=== PATIENT | female | born 1980 | race Caucasian/White ===

== ENCOUNTER 2020-03-04 00:50 | Emergency (ER) | payer SELFPAY ==
[2020-03-04] MEDS ORDERED: Sodium Chloride 0.9% 10 ML Syringe FLUSH PRN (00:52)
[2020-03-04] MEDS ORDERED: Ondansetron 4 MG/2 ML SDV IVPUSH ONE (00:52)
[2020-03-04] MEDS ORDERED: Sodium Chloride 0.9% 2.5 ML Syringe FLUSH PRN (00:52)
[2020-03-04] MEDS ORDERED: Sodium Chloride 0.9% 1,000 ML IV ONE ×3 (00:52→03:17)
[2020-03-04] MEDS ORDERED: Diphtheria,Pertussis(Acell),Tetanus Vaccine 0.5 ML Syringe IM ONE (01:14)
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
[2020-03-04] MEDS ORDERED: Glucagon,Human Recombinant 1 MG Vial IM PRN (01:32)
[2020-03-04] MEDS ORDERED: 50% Dextrose in Water 50 ML Syringe IV PRN (01:32)
[2020-03-04] MEDS ORDERED: Insulin Regular, Human 100 Units/ML 10 ML Vial IVPUSH ONE (01:32)
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
[2020-03-04 01:38] LABS: BLOOD UREA NITROGEN,BUN 18 mg/dL (7.0-18.0); CARBON DIOXIDE,CO2 21.3 mmol/L (21.0-32.0); LIPASE 107 U/L (73-393)
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
[2020-03-04 01:43] LABS: GLUCOSE RANDOM 688 mg/dL (74-106)
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
[2020-03-04 01:56] LABS: CHLORIDE,CL 97 mmol/L (98-107); POTASSIUM,K 4.4 mmol/L (3.5-5.1); SODIUM,NA 133 mmol/L (136-145)
[2020-03-04] MEDS ORDERED: fentaNYL 50 MCG/ML SDV IVPUSH ONE (02:06)
[2020-03-04] MEDS ORDERED: Diphtheria,Pertussis(Acell),Tetanus Vaccine 0.5 ML Syringe ONE (02:10)
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
[2020-03-04] MEDS ORDERED: Iopamidol 755 MG/ML 500 ML Multipack Bottle IVPUSH STA (02:48)
== END 2020-03-04 03:54 ==
LOC: MW.ED 00:50
DX: S06.0X9A Concussion with loss of consciousness of unspecified duration, initial encounter (principal); S12.9XXA Fracture of neck, unspecified, initial encounter; S02.11 Fracture of occiput; S01.81XA Laceration without foreign body of other part of head, initial encounter; E10.65 Type 1 diabetes mellitus with hyperglycemia; F10.129 Alcohol abuse with intoxication, unspecified; Y90.8 Blood alcohol level of 240 mg/100 ml or more; Z23 Encounter for immunization; V89.2XXA Person injured in unspecified motor-vehicle accident, traffic, initial encounter
CPT/HCPCS: 36415; 51702; 70450; 71260; 72125; 73600; 73630; 74177; 80053; 80179; 80305; 81003; 81025; 82962; 83690; 84484; 85025; 85610; 85730; 87635; 93005; 96374; 96375; 99285; G0390; J2405; J3010; J7030; Q9967; 72128-26; 72131-26; 99291; J1815-GY; U0002

== ENCOUNTER 2020-05-07 20:07 | Emergency (ER) | payer SELFPAY ==
[2020-05-07] MEDS ORDERED: HYDROmorphone 1 MG/ML Syringe IVPUSH ONE (20:36)
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
[2020-05-07] MEDS ORDERED: Sodium Chloride 0.9% 1,000 ML IV SCH (21:00)
== END 2020-05-07 21:15 ==
LOC: MW.ED 20:07
DX: M53.2X2 Spinal instabilities, cervical region (principal); E10.9 Type 1 diabetes mellitus without complications; Z87.891 Personal history of nicotine dependence; Z98.890 Other specified postprocedural states
CPT/HCPCS: 82962; 96374; 99285; J1170; J7030

== ENCOUNTER 2021-04-13 05:47 | Emergency (ER) | payer MEDICAID ==
[2021-04-13] MEDS ORDERED: Ondansetron 4 MG/2 ML SDV IVPUSH ONE (06:38)
[2021-04-13] MEDS ORDERED: Sodium Chloride 0.9% 10 ML Syringe FLUSH PRN (06:38)
[2021-04-13] MEDS ORDERED: Morphine 4 MG/ML VIAL IVPUSH ONE (06:38)
[2021-04-13] MEDS ORDERED: Sodium Chloride 0.9% 2.5 ML Syringe FLUSH PRN (06:38)
[2021-04-13 06:59] LABS: BLOOD UREA NITROGEN,BUN 13 mg/dL (7.0-18.0); CARBON DIOXIDE,CO2 26.8 mmol/L (21.0-32.0); CHLORIDE,CL 97 mmol/L (98-107); GLUCOSE RANDOM 297 mg/dL (74-106); POTASSIUM,K 3.7 mmol/L (3.5-5.1); SODIUM,NA 136 mmol/L (136-145)
[2021-04-13] MEDS ORDERED: Sodium Chloride 0.9% 1,000 ML IV ONE ×3 (08:01→10:26)
[2021-04-13] MEDS ORDERED: Iopamidol 755 MG/ML 500 ML Multipack Bottle IVPUSH STA (08:48)
[2021-04-13] MEDS ORDERED: HYDROmorphone 1 MG/ML Syringe IVPUSH ONE (08:54)
[2021-04-13] MEDS ORDERED: Piperacillin/Tazobactam 3.375 GM in Sodium Chloride 0.9% 50 ML IV ONE (10:23)
== END 2021-04-13 10:48 | disposition left against medical advice (07) ==
LOC: MW.ED 05:47
DX: J85.1 Abscess of lung with pneumonia (principal); E10.10 Type 1 diabetes mellitus with ketoacidosis without coma
CPT/HCPCS: 36415; 71275; 71275-26; 80053; 82009; 82803; 82947; 83605; 84484; 84703; 85025; 87040; 93005; 96374; 96375; 99284-25; J1170; J2270; J2405; J7030; Q9967

== ENCOUNTER 2021-04-13 13:25 | Emergency (ER) | payer MEDICAID ==
[2021-04-13] MEDS ORDERED: Piperacillin/Tazobactam 3.375 GM in Sodium Chloride 0.9% 50 ML IV ONE (13:33)
[2021-04-13] MEDS ORDERED: HYDROmorphone 1 MG/ML Syringe IVPUSH ONE (13:48)
[2021-04-13] MEDS ORDERED: VANCOmycin 1.5 GM/300 ML 1.5 GM in Premix Bag 1 BAG IV ONE (14:00)
[2021-04-13] MEDS ORDERED: Ondansetron 4 MG/2 ML SDV IVPUSH ONE (14:38)
== END 2021-04-13 15:18 ==
LOC: MW.ED 13:25
DX: J85.1 Abscess of lung with pneumonia (principal); E10.9 Type 1 diabetes mellitus without complications
CPT/HCPCS: 96365; 96375; 99284; J1170; J2405; J3370

== ENCOUNTER 2021-05-08 10:41 | Emergency (ER) | payer MEDICAID ==
[2021-05-08] MEDS ORDERED: Ondansetron 4 MG/2 ML SDV IVPUSH ONE (11:57)
[2021-05-08] MEDS ORDERED: Morphine 4 MG/ML VIAL IVPUSH ONE ×2 (11:57→13:45)
[2021-05-08 12:30] LABS: BLOOD UREA NITROGEN,BUN 16 mg/dL (7.0-18.0); CARBON DIOXIDE,CO2 24.9 mmol/L (21.0-32.0); CHLORIDE,CL 100 mmol/L (98-107); GLUCOSE RANDOM 282 mg/dL (74-106); LIPASE 107 U/L (73-393); POTASSIUM,K 4.4 mmol/L (3.5-5.1); SODIUM,NA 134 mmol/L (136-145)
[2021-05-08] MEDS ORDERED: Iopamidol 755 MG/ML 500 ML Multipack Bottle IVPUSH STA (13:12)
== END 2021-05-08 15:31 | disposition home or self-care (01) ==
LOC: MW.ED 10:41
DX: J18.9 Pneumonia, unspecified organism (principal); E10.9 Type 1 diabetes mellitus without complications
CPT/HCPCS: 36415; 71275; 80053; 83690; 84484; 84703; 85025; 96374; 96375; 96376; 99284; J2270; J2405; Q9967

== ENCOUNTER 2021-06-23 11:15 | Emergency (ER) | payer MEDICAID ==
[2021-06-23] MEDS ORDERED: Sodium Chloride 0.9% 10 ML Syringe FLUSH PRN (11:39)
[2021-06-23] MEDS ORDERED: Sodium Chloride 0.9% 1,000 ML IV ONE (11:39)
[2021-06-23] MEDS ORDERED: Sodium Chloride 0.9% 2.5 ML Syringe FLUSH PRN (11:39)
[2021-06-23] MEDS ORDERED: Morphine 4 MG/ML VIAL IVPUSH ONE (11:46)
[2021-06-23] MEDS ORDERED: Ondansetron 4 MG/2 ML SDV IVPUSH ONE (11:46)
[2021-06-23 12:11] LABS: BLOOD UREA NITROGEN,BUN 16 mg/dL (7.0-18.0); CARBON DIOXIDE,CO2 22.6 mmol/L (21.0-32.0); CHLORIDE,CL 100 mmol/L (98-107); GLUCOSE RANDOM 337 mg/dL (74-106); LIPASE 46 U/L (73-393); POTASSIUM,K 4.3 mmol/L (3.5-5.1); SODIUM,NA 135 mmol/L (136-145)
[2021-06-23] MEDS ORDERED: diphenhydrAMINE 50 MG/ML SDV IVPUSH ONE (12:39)
[2021-06-23] MEDS ORDERED: HYDROmorphone 2 MG/ML Syringe IVPUSH ONE (13:47)
[2021-06-23] MEDS ORDERED: Insulin Regular, Human 100 Units/ML 10 ML Vial SUBCUT SCH (14:00)
[2021-06-23] MEDS ORDERED: Iopamidol 755 MG/ML 500 ML Multipack Bottle IVPUSH ONE (14:50)
== END 2021-06-23 14:34 | disposition home or self-care (01) ==
LOC: MW.ED 11:15
DX: R10.9 Unspecified abdominal pain (principal); E10.65 Type 1 diabetes mellitus with hyperglycemia
CPT/HCPCS: 36415; 74177; 80053; 81003; 83690; 84703; 85025; 96374; 96375; 99284; J1170; J1200; J2270; J2405; J3490; J7030; Q9967; J1815-GY

== ENCOUNTER 2021-06-24 14:34 | Emergency (ER) | payer MEDICAID ==
[2021-06-24] MEDS ORDERED: Sodium Chloride 0.9% 1,000 ML IV ONE ×2 (15:33→16:10)
[2021-06-24 15:56] LABS: BLOOD UREA NITROGEN,BUN 14 mg/dL (7.0-18.0); CARBON DIOXIDE,CO2 26.4 mmol/L (21.0-32.0); CHLORIDE,CL 96 mmol/L (98-107); GLUCOSE RANDOM 479 mg/dL (74-106); POTASSIUM,K 4.4 mmol/L (3.5-5.1); SODIUM,NA 132 mmol/L (136-145)
[2021-06-24] MEDS ORDERED: Amoxicillin/Clavulanate K 875-125 MG Tab PO ONE (16:30)
[2021-06-24] MEDS ORDERED: Acetaminophen 500 MG Tab PO ONE (16:31)
[2021-06-24] MEDS ORDERED: Insulin Regular, Human 100 Units/ML 10 ML Vial SUBCUT SCH (17:30)
[2021-06-24] MEDS ORDERED: Ibuprofen 800 MG Tab PO ONE (19:20)
== END 2021-06-24 20:10 ==
LOC: MW.ED 14:34
DX: E10.65 Type 1 diabetes mellitus with hyperglycemia (principal); K04.7 Periapical abscess without sinus; Z79.899 Other long term (current) drug therapy; Z79.4 Long term (current) use of insulin
CPT/HCPCS: 36415; 80053; 82009; 82803; 82947; 85025; 99285; A9270; J7030; 99284; J1815-GY

== ENCOUNTER 2022-09-14 14:42 | Emergency (ER) | payer MEDICAID ==
[2022-09-14] MEDS ORDERED: Sodium Chloride 0.9% 2.5 ML Syringe FLUSH PRN (15:11)
[2022-09-14] MEDS ORDERED: Sodium Chloride 0.9% 10 ML Syringe FLUSH PRN (15:11)
[2022-09-14] MEDS ORDERED: Sodium Chloride 0.9% 2,000 ML IV STA (15:13)
[2022-09-14] MEDS ORDERED: Prochlorperazine 10 MG/2 ML SDV IVPUSH STA (15:14)
[2022-09-14] MEDS ORDERED: Acetaminophen 500 MG Tab PO STA (15:14)
[2022-09-14] MEDS ORDERED: Ketorolac 30 MG/ML SDV IVPUSH STA (15:14)
[2022-09-14 15:18] LABS: BASOPHILS PERCENT AUTO 0.6 % (0.0-1.5); EOSINOPHILS ABSOLUTE AUTO 0.2 K/uL (0.0-0.7); EOSINOPHILS PERCENT AUTO 2.4 % (0.0-7.0); LYMPHOCYTES PERCENT AUTO 33.1 % (16.0-40.0); MEAN CORPUSCULAR HEMOGLOBIN 33.2 pg (27.0-32.0); MEAN CORPUSCULAR HGB CONC 36.6 g/dL (31.0-37.0); MEAN CORPUSCULAR VOLUME 90.7 fL (80.0-98.0); MONOCYTES ABSOLUTE AUTO 0.4 K/uL (0.0-0.8); NEUTROPHILS ABSOLUTE AUTO 3.5 K/uL (1.4-5.7); NEUTROPHILS PERCENT AUTO 56.9 % (48.0-80.0); NRBC ABSOLUTE 0 K/uL; PLATELET COUNT,PLT 270 K/uL (150-400); RED BLOOD CELL COUNT 4.52 M/uL (4.30-5.90); WHITE BLOOD CELL COUNT,WBC 6.16 K/uL (4.0-11.0)
[2022-09-14 15:29] LABS: A/G RATIO 0.9 (0.9-1.6); ALBUMIN 3.2 g/dL (3.4-5.0); BILIRUBIN TOTAL 0.5 mg/dL (0.2-1.0); CALCIUM 8.7 mg/dL (8.5-10.1); CARBON DIOXIDE,CO2 30.1 mmol/L (21.0-32.0); CREATININE 0.9 mg/dL (0.6-1.0); EST CRCL DRUG DOSING (CG) 78.38 mL/min; MAGNESIUM 1.4 mg/dL (1.8-2.4); PHOSPHORUS 3.6 mg/dL (2.6-4.7); POTASSIUM,K 4.2 mmol/L (3.5-5.1); PROTEIN TOTAL,TP 6.6 g/dL (6.4-8.2)
[2022-09-14] MEDS ORDERED: Magnesium Sulfate/Water 4 GM in Premix Bag 1 BAG IV STA (15:32)
[2022-09-14 15:46] LABS: APPEARANCE,URINE SLT CLOUDY; BILIRUBIN,URINE NEGATIVE (NEGATIVE); COLOR,URINE YELLOW; GLUCOSE,URINE >=1000 mg/dL (NEGATIVE); KETONES,URINE NEGATIVE (NEGATIVE); LEUKOCYTE ESTERASE,URINE NEGATIVE (NEGATIVE); NITRITE,URINE NEGATIVE (NEGATIVE); OCCULT BLOOD,URINE NEGATIVE (NEGATIVE); PH,URINE 7.5 (5.0-8.0); PROTEIN,URINE NEGATIVE (NEGATIVE)
[2022-09-14] MEDS ORDERED: Glucagon,Human Recombinant 1 MG Vial IM PRN (15:52)
[2022-09-14] MEDS ORDERED: 50% Dextrose in Water 50 ML Syringe IVPUSH PRN (15:52)
[2022-09-14] MEDS ORDERED: Insulin Regular, Human 100 Units/ML 10 ML Vial IVPUSH STA (15:52)
[2022-09-14 18:14] LABS: CARBON DIOXIDE,CO2 27.7 mmol/L (21.0-32.0); CREATININE 0.9 mg/dL (0.6-1.0); EST CRCL DRUG DOSING (CG) 78.38 mL/min; POTASSIUM,K 4.5 mmol/L (3.5-5.1)
== END 2022-09-14 18:55 | disposition home or self-care (01) ==
LOC: MW.ED 14:42
DX: E10.65 Type 1 diabetes mellitus with hyperglycemia (principal); F17.210 Nicotine dependence, cigarettes, uncomplicated
CPT/HCPCS: 36415; 80048; 80053; 81003; 82009; 82947; 83690; 83735; 84100; 85025; 86308; 96365; 96366; 96375; 99284; A9270; J0780; J1885; J3475; J3490; J7030; J1815-GY

== ENCOUNTER 2022-12-03 23:14 | Inpatient (IN) | payer MEDICAID ==
[2022-12-03] MEDS ORDERED: LORazepam 2 MG/ML SDV IVPUSH ONE (23:25)
[2022-12-03] MEDS ORDERED: Lactated Ringers 1,000 ML IV SCH ×2 (23:30)
[2022-12-03 23:32] LABS: BASE EXCESS VENOUS -14.4 (-2.0-3.0); BASOPHILS PERCENT AUTO 0.5 % (0.0-1.5); EOSINOPHILS ABSOLUTE AUTO 0.1 K/uL (0.0-0.7); LYMPHOCYTES ABSOLUTE AUTO 1.7 K/uL (0.6-2.4); LYMPHOCYTES PERCENT AUTO 23.1 % (16.0-40.0); MEAN CORPUSCULAR HEMOGLOBIN 32.1 pg (27.0-32.0); MEAN CORPUSCULAR HGB CONC 34.1 g/dL (31.0-37.0); MEAN CORPUSCULAR VOLUME 94.2 fL (80.0-98.0); MONOCYTES ABSOLUTE AUTO 0.6 K/uL (0.0-0.8); MONOCYTES PERCENT AUTO 7.6 % (0.0-15.0); NEUTROPHILS PERCENT AUTO 67.8 % (48.0-80.0); NRBC ABSOLUTE 0 K/uL; PH,VENOUS 7.22 (7.31-7.41); PLATELET COUNT,PLT 311 K/uL (150-400); RED BLOOD CELL COUNT 4.67 M/uL (4.30-5.90); WHITE BLOOD CELL COUNT,WBC 7.33 K/uL (4.0-11.0)
[2022-12-03 23:39] LABS: APPEARANCE,URINE CLEAR; BILIRUBIN,URINE NEGATIVE (NEGATIVE); COLOR,URINE YELLOW; GLUCOSE,URINE >=1000 mg/dL (NEGATIVE); KETONES,URINE >=80 mg/dL (NEGATIVE); LEUKOCYTE ESTERASE,URINE NEGATIVE (NEGATIVE); NITRITE,URINE NEGATIVE (NEGATIVE); OCCULT BLOOD,URINE NEGATIVE (NEGATIVE); PH,URINE 5.5 (5.0-8.0); PROTEIN,URINE NEGATIVE (NEGATIVE); UROBILINOGEN,URINE 0.2 EU/dL (<2.0)
[2022-12-03] MEDS ORDERED: Ondansetron 4 MG/2 ML SDV IVPUSH ONE (23:56)
[2022-12-04 00:04] LABS: A/G RATIO 1.1 (0.9-1.6); ALBUMIN 4.1 g/dL (3.4-5.0); BILIRUBIN TOTAL 1.2 mg/dL (0.2-1.0); CALCIUM 9.1 mg/dL (8.5-10.1); CARBON DIOXIDE,CO2 11.9 mmol/L (21.0-32.0); CREATININE 1.4 mg/dL (0.6-1.0); EST CRCL DRUG DOSING (CG) 50.39 mL/min; MAGNESIUM 2.5 mg/dL (1.8-2.4); POTASSIUM,K 5.5 mmol/L (3.5-5.1); PROTEIN TOTAL,TP 7.8 g/dL (6.4-8.2); TSH ULTRASENSITIVE 0.86 uIU/mL (0.36-3.74)
[2022-12-04] MEDS ORDERED: Insulin Regular in 0.9 % NACL 100 ML IV SCH (00:15)
[2022-12-04] MEDS: Lidocaine 4% 1 each Patch TOP SCH ×2 (00:23→08:47)
[2022-12-04 01:48] LABS: BASE EXCESS VENOUS -13.4 (-2.0-3.0); PH,VENOUS 7.22 (7.31-7.41)
[2022-12-04] MEDS ORDERED: Ibuprofen 400 MG Tab PO ONE (01:48)
[2022-12-04] MEDS ORDERED: Acetaminophen 325 MG Tab PO ONE (01:48)
[2022-12-04 02:08] LABS: CALCIUM 8.4 mg/dL (8.5-10.1); CREATININE 1.3 mg/dL (0.6-1.0); EST CRCL DRUG DOSING (CG) 54.26 mL/min; POTASSIUM,K 4.4 mmol/L (3.5-5.1)
[2022-12-04] MEDS ORDERED: Polyethylene Glycol 3350 Powder 17 GM Packet PO PRN (02:58)
[2022-12-04] MEDS ORDERED: Ibuprofen 400 MG Tab PO PRN (02:58)
[2022-12-04] MEDS ORDERED: Albuterol/Ipratropium 3.0-0.5 MG/3 ML Neb Soln NEB PRN (02:58)
[2022-12-04] MEDS ORDERED: Ondansetron 4 MG/2 ML SDV IVPUSH PRN (02:58)
[2022-12-04] MEDS ORDERED: Acetaminophen 325 MG Tab PO PRN (02:58)
[2022-12-04] MEDS ORDERED: Lactated Ringers 1,000 ML IV SCH (03:00)
[2022-12-04] MEDS ORDERED: Enoxaparin 40 MG/0.4 ML Syringe SUBCUT SCH (03:00)
[2022-12-04] MEDS ORDERED: Pantoprazole 40 MG in Sodium Chloride 0.9% 10 ML IVPUSH SCH (03:00)
[2022-12-04] MEDS ORDERED: Lactated Ringers 1,000 ML IV ONE (03:05)
[2022-12-04] MEDS: Potassium Chloride 100 ML IV SCH ×2 (03:26→05:49)
[2022-12-04] MEDS ORDERED: Dextrose 5%-0.9% NaCl 1,000 ML IV SCH ×2 (03:30→07:44)
[2022-12-04 04:33] LABS: BASOPHILS PERCENT AUTO 0.4 % (0.0-1.5); EOSINOPHILS PERCENT AUTO 0.3 % (0.0-7.0); HEMATOCRIT 32.9 % (36.0-46.0); HEMOGLOBIN 11.4 g/dL (12.0-16.0); LYMPHOCYTES ABSOLUTE AUTO 1.9 K/uL (0.6-2.4); LYMPHOCYTES PERCENT AUTO 26.7 % (16.0-40.0); MEAN CORPUSCULAR HEMOGLOBIN 31.3 pg (27.0-32.0); MEAN CORPUSCULAR HGB CONC 34.7 g/dL (31.0-37.0); MEAN CORPUSCULAR VOLUME 90.4 fL (80.0-98.0); MONOCYTES ABSOLUTE AUTO 0.4 K/uL (0.0-0.8); MONOCYTES PERCENT AUTO 5.4 % (0.0-15.0); NEUTROPHILS ABSOLUTE AUTO 4.8 K/uL (1.4-5.7); NEUTROPHILS PERCENT AUTO 67.2 % (48.0-80.0); NRBC ABSOLUTE 0 K/uL; PLATELET COUNT,PLT 226 K/uL (150-400); RED BLOOD CELL COUNT 3.64 M/uL (4.30-5.90); WHITE BLOOD CELL COUNT,WBC 7.19 K/uL (4.0-11.0)
[2022-12-04 04:44] LABS: CALCIUM 8.3 mg/dL (8.5-10.1); CARBON DIOXIDE,CO2 20.5 mmol/L (21.0-32.0); EST CRCL DRUG DOSING (CG) 70.54 mL/min; POTASSIUM,K 4.2 mmol/L (3.5-5.1)
[2022-12-04 04:48] LABS: MAGNESIUM 2.2 mg/dL (1.8-2.4); PHOSPHORUS 3.3 mg/dL (2.6-4.7)
[2022-12-04 08:19] LABS: CALCIUM 7.6 mg/dL (8.5-10.1); CARBON DIOXIDE,CO2 23.6 mmol/L (21.0-32.0); CREATININE 0.9 mg/dL (0.6-1.0); EST CRCL DRUG DOSING (CG) 78.38 mL/min; POTASSIUM,K 4.6 mmol/L (3.5-5.1)
[2022-12-04] MEDS ORDERED: Insulin Glargine,Hum.Rec.Anlog 100 UNIT/ML 3 ML Pen SUBCUT ONE (09:02)
[2022-12-04] MEDS ORDERED: Glucagon,Human Recombinant 1 MG Vial IM PRN (10:26)
[2022-12-04] MEDS ORDERED: 50% Dextrose in Water 50 ML Syringe IVPUSH PRN (10:26)
[2022-12-04] MEDS: Insulin Aspart 100 Units/ML 3 ML Pen SUBCUT SCH ×2 (11:35→11:51)
[2022-12-04 13:23] LABS: CALCIUM 7.6 mg/dL (8.5-10.1); CARBON DIOXIDE,CO2 24.8 mmol/L (21.0-32.0); CREATININE 1.2 mg/dL (0.6-1.0); EST CRCL DRUG DOSING (CG) 58.78 mL/min; POTASSIUM,K 4.1 mmol/L (3.5-5.1)
== END 2022-12-04 15:15 | disposition home or self-care (01) | DRG 639 ==
LOC: MW.ED 23:14 → MW.ICU 12-04 02:30
PROVIDERS: ADMIT Family Medicine; ATTEND Family Medicine
PROC: 3E033VG Introduction of Insulin into Peripheral Vein, Percutaneous Approach (ICD-10-PCS; principal; 2022-12-04)
DX: E10.10 Type 1 diabetes mellitus with ketoacidosis without coma (principal); F41.9 Anxiety disorder, unspecified; Z20.822 Contact with and (suspected) exposure to COVID-19; Z87.01 Personal history of pneumonia (recurrent); Z79.4 Long term (current) use of insulin
CPT/HCPCS: 36415; 71045; 71045-26; 80048; 80053; 81003; 82009; 82803; 82947; 83690; 83735; 84100; 84443; 84484; 85025; 93005; 93010; 96361; 96374; 96375; 99235; 99291; A9270-GY; C9113; J1650; J1815; J1815-GY; J2060; J2405; J3480; J3490; J7042; J7120; U0002

== ENCOUNTER 2023-07-19 01:22 | Inpatient (IN) | payer MEDICAID ==
[2023-07-19] MEDS: Sodium Chloride 0.9% 10 ML Syringe FLUSH PRN (02:03)
[2023-07-19] MEDS: Lactated Ringers 1,000 ML IV STA (02:03)
[2023-07-19] MEDS: Sodium Chloride 0.9% 2.5 ML Syringe FLUSH PRN (02:04)
[2023-07-19 02:08] LABS: BASE EXCESS VENOUS -8.6 (-2.0-3.0); BASOPHILS ABSOLUTE AUTO 0.07 K/uL (0.00-0.20); BASOPHILS PERCENT AUTO 0.7 % (0.0-1.0); BICARBONATE,VENOUS 19 mEQ/mL (22-28); EOSINOPHILS ABSOLUTE AUTO 0.17 K/uL (0.00-0.45); EOSINOPHILS PERCENT AUTO 1.7 % (0.0-6.0); HEMATOCRIT 42.9 % (37.0-47.0); HEMOGLOBIN 14.9 g/dL (12.0-16.0); IMMATURE GRAN ABSOLUTE AUTO 0.05 K/uL (0.00-0.05); IMMATURE GRAN PERCENT AUTO 0.5 % (0.0-0.4); LYMPHOCYTES ABSOLUTE AUTO 2.41 K/uL (1.00-4.80); LYMPHOCYTES PERCENT AUTO 24.5 % (24.0-44.0); MEAN CORPUSCULAR HEMOGLOBIN 32.3 pg (28.0-32.0); MEAN CORPUSCULAR HGB CONC 34.7 g/dL (32.0-36.0); MEAN CORPUSCULAR VOLUME 93.1 fL (83.0-99.0); MEAN PLATELET VOLUME 9.5 fL (9.4-12.3); MONOCYTES ABSOLUTE AUTO 0.43 K/uL (0.00-0.80); MONOCYTES PERCENT AUTO 4.4 % (0.0-8.0); NEUTROPHILS ABSOLUTE AUTO 6.72 K/uL (1.80-7.70); NEUTROPHILS PERCENT AUTO 68.2 % (41.0-71.0); PCO2 VENOUS 44 mmHG (41-51); PH,VENOUS 7.24 (7.31-7.41); PLATELET COUNT,PLT 289 K/uL (150-400); PO2 VENOUS < 30 mmHG (35-45); RED BLOOD CELL COUNT 4.61 M/uL (4.10-5.30); WHITE BLOOD CELL COUNT,WBC 9.85 K/uL (3.9-11.3)
[2023-07-19] MEDS: Ondansetron 4 MG/2 ML SDV IVPUSH ONE ×2 (02:14→03:13)
[2023-07-19 02:29] LABS: APPEARANCE,URINE CLEAR; BILIRUBIN,URINE NEGATIVE (NEGATIVE); COLOR,URINE YELLOW; GLUCOSE,URINE >=1000 mg/dL (NEGATIVE); KETONES,URINE >=80 mg/dL (NEGATIVE); LEUKOCYTE ESTERASE,URINE NEGATIVE (NEGATIVE); NITRITE,URINE NEGATIVE (NEGATIVE); OCCULT BLOOD,URINE NEGATIVE (NEGATIVE); PROTEIN,URINE NEGATIVE (NEGATIVE); UROBILINOGEN,URINE 0.2 EU/dL (<2.0)
[2023-07-19 02:46] LABS: ALANINE AMINOTRANSFERASE,ALT 25 IU/L (14-63); ALBUMIN 3.8 g/dL (3.4-5.0); ALKALINE PHOSPHATASE 150 U/L (46-116); ASPARTATE AMNIOTRANSFERASE,AST 14 IU/L (15-37); BILIRUBIN TOTAL 1.5 mg/dL (0.2-1.0); BLOOD UREA NITROGEN,BUN 23 mg/dL (7.0-18.0); CALCIUM 9.7 mg/dL (8.5-10.1); CARBON DIOXIDE,CO2 19.3 mmol/L (21.0-32.0); CHLORIDE,CL 88 mmol/L (98-107); CREATININE 1.2 mg/dL (0.6-1.0); EST CRCL DRUG DOSING (CG) 58.78 mL/min; LIPASE 17 U/L (16-77); MAGNESIUM 1.9 mg/dL (1.8-2.4); PROTEIN TOTAL,TP 7.7 g/dL (6.4-8.2); SODIUM,NA 128 mmol/L (136-145)
[2023-07-19 02:47] LABS: HEMOGLOBIN A1C 12.3 %
[2023-07-19 02:53] LABS: ESTIMATED GFR 58 mL/min (>60); GLUCOSE RANDOM 722 mg/dL (74-106)
[2023-07-19] MEDS: Insulin Regular in 0.9 % NACL 100 ML IV STA (03:05)
[2023-07-19] MEDS: Sodium Chloride 0.9% 1,000 ML IV ONE (03:21)
[2023-07-19] MEDS: Ondansetron 4 MG/2 ML SDV ONE (03:22)
[2023-07-19] MEDS: NS with KCl 40mEq 1,000 ML IV SCH (03:27)
[2023-07-19] MEDS: Insulin Regular in 0.9 % NACL 100 ML IV SCH (04:23)
[2023-07-19 07:00] LABS: CARBON DIOXIDE,CO2 22.8 mmol/L (21.0-32.0); CREATININE 0.8 mg/dL (0.6-1.0); EST CRCL DRUG DOSING (CG) 88.18 mL/min; POTASSIUM,K 4.1 mmol/L (3.5-5.1)
[2023-07-19] MEDS: Dextrose 5%-0.9% NaCl 1,000 ML IV SCH (07:24)
[2023-07-19] MEDS: Ondansetron 4 MG/2 ML SDV IVPUSH PRN (07:27)
[2023-07-19] MEDS: Enoxaparin 40 MG/0.4 ML Syringe SUBCUT SCH (07:27)
[2023-07-19 07:53] LABS: CORONAVIRUS COVID-19 NAA NEGATIVE (NEGATIVE); INFLUENZA A NAA NEGATIVE (NEGATIVE); INFLUENZA B NAA NEGATIVE (NEGATIVE); RESPIRATORY SYNCYTIAL VIR NAA NEGATIVE (NEGATIVE)
[2023-07-19] MEDS: Promethazine 25 MG/ML SDV IM PRN (09:59)
[2023-07-19 10:35] LABS: CALCIUM 7.8 mg/dL (8.5-10.1); CARBON DIOXIDE,CO2 24.3 mmol/L (21.0-32.0); CREATININE 0.7 mg/dL (0.6-1.0); EST CRCL DRUG DOSING (CG) 100.77 mL/min; POTASSIUM,K 4.1 mmol/L (3.5-5.1)
[2023-07-19 14:43] LABS: CALCIUM 7.7 mg/dL (8.5-10.1); CARBON DIOXIDE,CO2 25.8 mmol/L (21.0-32.0); CREATININE 0.7 mg/dL (0.6-1.0); EST CRCL DRUG DOSING (CG) 100.77 mL/min; POTASSIUM,K 4.2 mmol/L (3.5-5.1)
[2023-07-19] MEDS ORDERED: 50% Dextrose in Water 50 ML Syringe IVPUSH PRN ×2 (15:15→17:31)
[2023-07-19] MEDS ORDERED: Glucagon,Human Recombinant 1 MG Vial IM PRN ×3 (15:15→21:37)
[2023-07-19] MEDS: Insulin Glargine,Hum.Rec.Anlog 100 UNIT/ML 3 ML Pen SUBCUT STA (15:23)
[2023-07-19] MEDS: Insulin Aspart 100 Units/ML 3 ML Pen SUBCUT SCH (17:05)
[2023-07-19 18:42] LABS: CALCIUM 7.7 mg/dL (8.5-10.1); CARBON DIOXIDE,CO2 22.7 mmol/L (21.0-32.0); EST CRCL DRUG DOSING (CG) 70.54 mL/min; POTASSIUM,K 4.4 mmol/L (3.5-5.1)
[2023-07-19] MEDS: Acetaminophen 325 MG Tab PO PRN (20:17)
[2023-07-19] MEDS ORDERED: Insulin Glargine,Hum.Rec.Anlog 100 UNIT/ML 3 ML Pen SUBCUT SCH (21:00)
[2023-07-19] MEDS: Insulin Aspart 100 Units/ML 3 ML Pen SUBCUT ONE (21:44)
[2023-07-19] MEDS: Insulin Glargine,Hum.Rec.Anlog 100 UNIT/ML 3 ML Pen SUBCUT SCH (21:45)
[2023-07-19 22:25] LABS: CALCIUM 7.9 mg/dL (8.5-10.1); CARBON DIOXIDE,CO2 20.1 mmol/L (21.0-32.0); EST CRCL DRUG DOSING (CG) 70.54 mL/min; POTASSIUM,K 4.5 mmol/L (3.5-5.1)
[2023-07-20 06:20] LABS: BASOPHILS ABSOLUTE AUTO 0.04 K/uL (0.00-0.20); BASOPHILS PERCENT AUTO 0.7 % (0.0-1.0); EOSINOPHILS ABSOLUTE AUTO 0.31 K/uL (0.00-0.45); EOSINOPHILS PERCENT AUTO 5.4 % (0.0-6.0); HEMATOCRIT 35.4 % (37.0-47.0); HEMOGLOBIN 12.5 g/dL (12.0-16.0); IMMATURE GRAN ABSOLUTE AUTO 0.02 K/uL (0.00-0.05); IMMATURE GRAN PERCENT AUTO 0.3 % (0.0-0.4); LYMPHOCYTES ABSOLUTE AUTO 2.39 K/uL (1.00-4.80); LYMPHOCYTES PERCENT AUTO 41.7 % (24.0-44.0); MEAN CORPUSCULAR HEMOGLOBIN 32.6 pg (28.0-32.0); MEAN CORPUSCULAR HGB CONC 35.3 g/dL (32.0-36.0); MEAN CORPUSCULAR VOLUME 92.4 fL (83.0-99.0); MEAN PLATELET VOLUME 9.1 fL (9.4-12.3); MONOCYTES ABSOLUTE AUTO 0.35 K/uL (0.00-0.80); MONOCYTES PERCENT AUTO 6.1 % (0.0-8.0); NEUTROPHILS ABSOLUTE AUTO 2.62 K/uL (1.80-7.70); NEUTROPHILS PERCENT AUTO 45.8 % (41.0-71.0); PLATELET COUNT,PLT 200 K/uL (150-400); RED BLOOD CELL COUNT 3.83 M/uL (4.10-5.30); WHITE BLOOD CELL COUNT,WBC 5.73 K/uL (3.9-11.3)
[2023-07-20 06:35] LABS: CALCIUM 8.2 mg/dL (8.5-10.1); CARBON DIOXIDE,CO2 24.9 mmol/L (21.0-32.0); CREATININE 0.6 mg/dL (0.6-1.0); EST CRCL DRUG DOSING (CG) 117.57 mL/min; POTASSIUM,K 3.8 mmol/L (3.5-5.1)
[2023-07-20 08:03] LABS: BORDETELLA PARAPERT IS1001 Not Detected (Not Detected)
[2023-07-20] MEDS: Insulin Aspart 100 Units/ML 3 ML Pen SUBCUT SCH (08:45)
== END 2023-07-20 09:15 | disposition left against medical advice (07) | DRG 639 ==
LOC: MW.ED 01:22 → MW.ICU 03:10 → MW.MS 19:49
PROVIDERS: ADMIT Internal Medicine; ATTEND Internal Medicine
DX: E10.10 Type 1 diabetes mellitus with ketoacidosis without coma (principal); F41.9 Anxiety disorder, unspecified; H53.8 Other visual disturbances; Z79.4 Long term (current) use of insulin; Z90.89 Acquired absence of other organs; Z87.01 Personal history of pneumonia (recurrent)
CPT/HCPCS: 0241U; 36415; 71045; 71045-26; 80048; 80053; 81003; 82009; 82803; 82947; 83036; 83690; 83735; 84484; 84703; 85025; 87486; 87581; 87633; 93005; 93010; 96361; 96374; 99285-25; 99291; A9270-GY; J1650; J1815; J1815-GY; J2405; J2550; J3480; J3490; J7030; J7042; J7120

== ENCOUNTER 2024-08-17 09:38 | Emergency (ER) | payer MEDICAID ==
[2024-08-17] MEDS: Ketorolac 30 MG/ML SDV IVPUSH ONE (10:04)
[2024-08-17] MEDS: LORazepam 2 MG/ML SDV IVPUSH ONE (10:06)
[2024-08-17] MEDS: Sodium Chloride 0.9% 1,000 ML IV ONE (10:06)
[2024-08-17 10:10] LABS: BASOPHILS ABSOLUTE AUTO 0.04 K/uL (0.00-0.20); BASOPHILS PERCENT AUTO 0.8 % (0.0-1.0); EOSINOPHILS ABSOLUTE AUTO 0.37 K/uL (0.00-0.45); HEMATOCRIT 38.5 % (37.0-47.0); HEMOGLOBIN 13.8 g/dL (12.0-16.0); IMMATURE GRAN ABSOLUTE AUTO 0.01 K/uL (0.00-0.05); IMMATURE GRAN PERCENT AUTO 0.2 % (0.0-0.4); LYMPHOCYTES ABSOLUTE AUTO 1.99 K/uL (1.00-4.80); LYMPHOCYTES PERCENT AUTO 37.5 % (24.0-44.0); MEAN CORPUSCULAR HEMOGLOBIN 31.7 pg (28.0-32.0); MEAN CORPUSCULAR HGB CONC 35.8 g/dL (32.0-36.0); MEAN CORPUSCULAR VOLUME 88.3 fL (83.0-99.0); MEAN PLATELET VOLUME 9.2 fL (9.4-12.3); MONOCYTES ABSOLUTE AUTO 0.23 K/uL (0.00-0.80); MONOCYTES PERCENT AUTO 4.3 % (0.0-8.0); NEUTROPHILS ABSOLUTE AUTO 2.66 K/uL (1.80-7.70); NEUTROPHILS PERCENT AUTO 50.2 % (41.0-71.0); PLATELET COUNT,PLT 246 K/uL (150-400); RED BLOOD CELL COUNT 4.36 M/uL (4.10-5.30)
[2024-08-17] MEDS: Iopamidol 755 MG/ML 500 ML Multipack Bottle IVPUSH STA (10:19)
[2024-08-17 10:42] LABS: A/G RATIO 0.9 (0.9-1.6); ALANINE AMINOTRANSFERASE,ALT 23 IU/L (14-63); ALBUMIN 2.9 g/dL (3.4-5.0); ALKALINE PHOSPHATASE 84 U/L (46-116); ASPARTATE AMNIOTRANSFERASE,AST 21 IU/L (15-37); BILIRUBIN TOTAL 0.4 mg/dL (0.2-1.0); BLOOD UREA NITROGEN,BUN 11 mg/dL (7.0-18.0); CALCIUM 8.5 mg/dL (8.5-10.1); CARBON DIOXIDE,CO2 28.2 mmol/L (21.0-32.0); CHLORIDE,CL 100 mmol/L (98-107); CREATININE 0.9 mg/dL (0.6-1.0); EST CRCL DRUG DOSING (CG) 76.76 mL/min; GLUCOSE RANDOM 305 mg/dL (74-106); POTASSIUM,K 4.1 mmol/L (3.5-5.1); PRO B-TYPE NATRIUR PEPT,BNPPRO 241 pg/mL (0-125); PROTEIN TOTAL,TP 6.2 g/dL (6.4-8.2); SODIUM,NA 136 mmol/L (136-145)
[2024-08-17 10:47] LABS: ESTIMATED GFR 80 mL/min (>60); ETHANOL BLOOD MEDICAL < 3.0 mg/dL
== END 2024-08-17 11:11 | disposition home or self-care (01) ==
LOC: MW.ED 09:38
DX: R07.89 Other chest pain (principal); Z90.49 Acquired absence of other specified parts of digestive tract; Z75.8 Other problems related to medical facilities and other health care
CPT/HCPCS: 36415; 71275; 80053; 80307; 83690; 83880; 84484; 85025; 93005; 96361; 96374; 96375; 99285; J1885; J2060; J7030; Q9967; 93010; 99284

== ENCOUNTER 2024-12-13 13:29 | Emergency (ER) | payer MEDICAID ==
[2024-12-13] MEDS: Acetaminophen/HYDROcodone 325-5 MG Tab PO ONE (14:27)
[2024-12-13 14:35] LABS: BASOPHILS ABSOLUTE AUTO 0.05 K/uL (0.00-0.20); BASOPHILS PERCENT AUTO 0.8 % (0.0-1.0); EOSINOPHILS ABSOLUTE AUTO 0.51 K/uL (0.00-0.45); EOSINOPHILS PERCENT AUTO 8.5 % (0.0-6.0); IMMATURE GRAN ABSOLUTE AUTO 0.02 K/uL (0.00-0.05); IMMATURE GRAN PERCENT AUTO 0.3 % (0.0-0.4); LYMPHOCYTES ABSOLUTE AUTO 2.36 K/uL (1.00-4.80); LYMPHOCYTES PERCENT AUTO 39.5 % (24.0-44.0); MEAN PLATELET VOLUME 9.4 fL (9.4-12.3); MONOCYTES ABSOLUTE AUTO 0.31 K/uL (0.00-0.80); MONOCYTES PERCENT AUTO 5.2 % (0.0-8.0); NEUTROPHILS ABSOLUTE AUTO 2.72 K/uL (1.80-7.70); NEUTROPHILS PERCENT AUTO 45.7 % (41.0-71.0); NRBC ABSOLUTE 0.00 K/uL (0.00-0.02); NRBC PERCENT 0.0 /100WBC (0.0-0.2); PLATELET COUNT,PLT 219 K/uL (150-400); RED BLOOD CELL COUNT 4.18 M/uL (4.10-5.30); WHITE BLOOD CELL COUNT,WBC 5.97 K/uL (3.9-11.3)
[2024-12-13 15:03] LABS: A/G RATIO 1.0 (0.9-1.6); ALANINE AMINOTRANSFERASE,ALT 32.0 IU/L (14-63); ASPARTATE AMNIOTRANSFERASE,AST 24.0 IU/L (15-37); BILIRUBIN TOTAL 0.3 mg/dL (0.2-1.0); BLOOD UREA NITROGEN,BUN 12.0 mg/dL (7.0-18.0); CARBON DIOXIDE,CO2 23.8 mmol/L (21.0-32.0); CHLORIDE,CL 103.0 mmol/L (98-107); CREATININE 0.8 mg/dL (0.6-1.0); EST CRCL DRUG DOSING (CG) 86.36 mL/min; GLUCOSE RANDOM 161.0 mg/dL (74-106); POTASSIUM,K 4.0 mmol/L (3.5-5.1); PROTEIN TOTAL,TP 6.9 g/dL (6.4-8.2); SODIUM,NA 138.0 mmol/L (136-145)
[2024-12-13 15:10] LABS: ESTIMATED GFR 93.0 mL/min (>60)
== END 2024-12-13 16:02 | disposition home or self-care (01) ==
LOC: MW.ED 13:29
DX: G62.9 Polyneuropathy, unspecified (principal); E10.9 Type 1 diabetes mellitus without complications; F17.200 Nicotine dependence, unspecified, uncomplicated; Z90.49 Acquired absence of other specified parts of digestive tract; Z90.710 Acquired absence of both cervix and uterus; Z79.4 Long term (current) use of insulin; Z79.899 Other long term (current) drug therapy; Z75.3 Unavailability and inaccessibility of health-care facilities
CPT/HCPCS: 36415; 72125; 80053; 83735; 85025; 99284; A9270